=== PATIENT | male | born 1980 | race Caucasian/White ===

== ENCOUNTER 2021-10-22 10:19 | Emergency (ER) | payer BC ==
[~2021-10-22] VITALS: Ht 177.8 cm; Wt 81.8 kg
[2021-10-22 10:32] VITALS: BP 128/93
[2021-10-22] MEDS ORDERED: HYDROcodone/APAP 5/325MG 1 TAB TABLET PO ONE (10:45)
--- NOTE | 2021-10-22 10:46 | RAD ---
XR EXAM OF ANKLE_LEFT 3V 10/22/2021 10:32 AM INDICATION: Left ankle pain COMPARISON: None available. TECHNIQUE: 3 views of the left ankle are provided. FINDINGS/ IMPRESSION: Lateral soft tissue swelling is present. There is no acute fracture or dislocation. Joint spaces are maintained. Bone mineralization is within normal limits. There is no soft tissue gas or osseous erosi on. No radiopaque foreign body. Electronically signed by: Bisi Espana MD (10/22/2021 10:44 AM) [id number]
--- NOTE | 2021-10-22 10:54 | PHYS DOC ---
Past History Past Surgical History: Other Additional Past Surgical Histo: right knee repair (JAIME LOW APRN) General Adult EDM: Chief Complaint: LOWEREXTREMITY INJURY HPI: HPI: Patient is a 41-year-old male presents with left ankle pain. Patient was hanging Candie lights yesterday when he stepped down on a concrete wall and rolled his ankle. Patient reports taking tramadol for pain with little help. Pains improved by not walking. Rating pain 6/10. History of chronic back and knee pain. (JAIME LOW APRN) Review of Systems: Review of Systems: ROS At least 10 ROS systems have been reviewed and are negative except as documented in the HPI. General: Negative except as outlined in HPI above. Skin: Negative except as outlined in HPI above. HEENT: Negative except as outlined in HPI above. Neck: Negative except as outlined in HPI above. Respiratory: Negative except as outlined in HPI above.. Cardiovascular: Negative except as outlined in HPI above. Abdomen: Negative except as outlined in HPI above. : Negative except as outlined in HPI above. Back/MSK: Negative except as outlined in HPI above. Neuro: Negative except as outlined in HPI above. Psych: Negative except as outlined in HPI above. (JAIME LOW APRN) Current Medications: Current Meds: Current Medications Medications (Trade) Dose Ordered Sig/Aaron Start Time Stop Time Status Last Admin Dose Admin Acetaminophen/ Hydrocodone Bitart (Lortab 5/325) 1 tab 1X ONCE 10/22/21 10:45 10/22/21 10:46 UNV (JAIME LOW APRN) Physical Exam: PE: Constitutional: Well developed, well nourished, no acute distress, non-toxic appearance. [] HENT: Normocephalic, atraumatic, bilateral external ears normal, oropharynx moist, no oral exudates, nose normal. [] Eyes: PERRLA, EOMI, conjunctiva normal, no discharge. [] Neck: Normal range of motion, no tenderness, supple, no stridor. [] Cardiovascular:Heart rate regular rhythm, no murmur [] Lungs & Thorax: Bilateral breath sounds clear to auscultation [] Abdomen: Bowel sounds normal, soft, no tenderness, no masses, no pulsatile masses. [] Skin: Warm, dry, no erythema, no rash. [] Back: No tenderness, no CVA tenderness. [] Extremities: Left ankle swelling and pain, range of motion intact, pedal pulses intact Neurologic: Alert and oriented X 3, normal motor function, normal sensory function, no focal deficits noted. [] Psychologic: Affect normal, judgement normal, mood normal. [] (JAIME LOW APRN) Current Patient Data: Vital Signs: Vital Signs Date Time Temp Pulse Resp B/P (MAP) Pulse Ox O2 Delivery O2 Flow Rate FiO2 10/22/21 10:32 104 18 128/93 (105) 100 (JAIME LOW APRN) EKG: EKG: [] (JAIME LOW APRN) Radiology/Procedures: Radiology/Procedures: []XR EXAM OF ANKLE_LEFT 3V 10/22/2021 10:32 AM INDICATION: Left ankle pain COMPARISON: None available. TECHNIQUE: 3 views of the left ankle are provided. FINDINGS/ IMPRESSION: Lateral soft tissue swelling is present. There is no acute fracture or dislocation. Joint spaces are maintained. Bone mineralization is within normal limits. There is no soft tissue gas or osseous erosion. No radiopaque foreign body. Electronically signed by: Bisi Espana MD (10/22/2021 10:44 AM) [id number] (JAIME LOW APRN) Heart Score: C/O Chest Pain: No Risk Factors: Risk Factors: DM, Current or recent (<one month) smoker, HTN, HLP, family history of CAD, obesity. Risk Scores: Score 0 - 3: 2.5% MACE over next 6 weeks - Discharge Home Score 4 - 6: 20.3% MACE over next 6 weeks - Admit for Clinical Observation Score 7 - 10: 72.7% MACE over next 6 weeks - Early Invasive Strategies (JAIME LOW APRN) Course & Med Decision Making: Course & Med Decision Making Pertinent Labs and Imaging studies reviewed. (See chart for details) [] 41-year-old male presents with left ankle pain. X-ray of the left ankle ordered to rule out fracture. Pain was treated in the emergency room. Ankle x-ray was negative for fracture. Educated on RICE. Emanuel wrap applied to ankle. Ibuprofen at home for pain. (JAIME LOW APRN) Dragon Disclaimer: Dragon Disclaimer: This electronic medical record was generated, in whole or in part, using a voice recognition dictation system. (JAIME LOW APRN) Attending Co-Sign The patient was seen and interviewed as well as examined at the bedside. The chart was reviewed. The case was discussed. Agree with the plan of care. (KEENA MURILLO DO) Departure Departure: Impression: Primary Impression: Ankle sprain Qualified Codes: S93.402A - Sprain of unspecified ligament of left ankle, initial encounter Disposition: HOME / SELF CARE / HOMELESS Condition: STABLE Referrals: DUTCH MURRAY MD (PCP) Patient Instructions: Ankle Sprain, RICE - Routine Care for Injuries, [id number] Additional Instructions: You are seen in the emergency room for left ankle pain. X-ray was negative for fracture. Rest, use ice to the injured area, wear Emanuel wrap, elevate to help with swelling and pain. Ibuprofen at home for discomfort. Follow-up with your PCP if pain does not improve for possible reimaging. Return emergency room for worsening symptoms or concerns. EMERGENCY DEPARTMENT GENERAL DISCHARGE INSTRUCTIONS Thank you for coming to [facility] (ED) today and trusting us with you care. We trust that you had a positivie experience in our Emergency Department. If you wish to speak to the department management, you may call the director at [phone]. YOUR FOLLOW UP INSTRUCTIONS ARE FOLLOWS: 1. Do you have a private Doctor? If you do not have a private doctor, please ask for a resource list of physicians or clinics that may be able to assist you with follow up care. 2. The Emergency Physician has interpreted your x-rays. The X-Ray specialist will also review them. If there is a change in the findings, you will be notified in 48 hours when at all possible. 3. A lab test or culture has been done, your results will be reviewed and you will be notified if you need a change in treatment. ADDITIONAL INSTRUCTIONS AND INFORMATION: 1. Your care today has been supervised by a physician who is specially trained in emergency care. Many problems require more than one evaluation for a complete diagnosis and treatment. We recommend that you schedule your follow up appointment as recommended to ensure complete treatment of you illness or injury. If you are unable to obtain follow up care and continue to have a problem, or if your condition worsens, we recommend that you return to the ED. 2. We are not able to safely determine your condition over the phone nor are we able to give sound medical advice over the phone. For these safety reasons, if you call for medical advice we will ask you to come to the ED for further evaluation. 3. If you have any questions regarding these discharge instructions please call the ED at [phone]. SAFETY INFORMATION: In the interest of safety, wellness, and injury prevention; we encourage you to wear your sealbelt, if you smoke; quite smoking, and we encourage family to use a protective helmet for bicycling and other sporting events that present an increased risk for head injury. IF YOUR SYMPTOMS WORSEN OR NEW SYMPTOMS DEVELOP, OR YOU HAVE CONCERNS ABOUT YOUR CONDITION; OR IF YOUR CONDITION WORSENS WHILE YOU ARE WAITING FOR YOUR FOLLOW UP APPOINTME NT; EITHER CONTACT YOUR PRIMARY CARE DOCTOR, THE PHYSICIAN WHOSE NAME AND NUMBER YOU WERE GIVEN, OR RETURN TO THE ED IMMEDIATELY. JAIME LOW APRN Oct 22, 2021 10:54 KEENA MURILLO DO Oct 26, 2021 10:06
== END 2021-10-22 11:05 | disposition home or self-care (01) ==
LOC: ER 10:19
DX: S93.402A Sprain of unspecified ligament of left ankle, initial encounter (principal); W22.8XXA Striking against or struck by other objects, initial encounter; Y93.89 Activity, other specified; Y92.89 Other specified places as the place of occurrence of the external cause; Y99.8 Other external cause status
CPT/HCPCS: 73610; 99283-25